=== PATIENT | female | born 1955 | race Caucasian/White ===

== ENCOUNTER 2019-05-18 09:39 | Outpatient (CLI) | payer OTHER | END 2019-05-18 23:59 | disposition home or self-care (01) | LOC: CFH 09:39 | PROVIDERS: ATTEND Chiropractor | DX: S13.8XXA Sprain of joints and ligaments of other parts of neck, initial encounter (principal); S13.180A Subluxation of C7/T1 cervical vertebrae, initial encounter; M25.78 Osteophyte, vertebrae; M47.815 Spondylosis without myelopathy or radiculopathy, thoracolumbar region; M19.011 Primary osteoarthritis, right shoulder; X58.XXXA Exposure to other specified factors, initial encounter; Y93.89 Activity, other specified; Y92.89 Other specified places as the place of occurrence of the external cause; Y99.8 Other external cause status | CPT/HCPCS: 72050; 72100; 72170 ==